=== PATIENT | male | born 2000 | race Caucasian/White ===

== ENCOUNTER 2020-09-04 09:34 | Emergency (ER) | payer OTHER ==
[~2020-09-04] VITALS: Ht 170.2 cm; Wt 74.5 kg
--- NOTE | 2020-09-04 10:52 | REP ---
INDICATION: TRAUMA. COMPARISON: None. TECHNIQUE: Four views FINDINGS: 9 ft, subtalar joint, tarsal bones and their articulations, metatarsals and phalanges are without fracture or focal bone lesion no erosions or 5 joint abnormalities are identified. 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 No avulsion or abnormal soft tissue calcification. No heel spurs. IMPRESSION: Negative right foot series for fracture or other acute bony finding. <Electronically signed by Leander Wood > 09/04/20 1045
[2020-09-04 11:20] VITALS: BP 137/76
== END 2020-09-04 11:25 | disposition home or self-care (01) ==
LOC: M ED 09:34
DX: S90.31XA Contusion of right foot, initial encounter (principal); W20.8XXA Other cause of strike by thrown, projected or falling object, initial encounter; Y99.1 Military activity; Y92.9 Unspecified place or not applicable; Y93.9 Activity, unspecified; F17.200 Nicotine dependence, unspecified, uncomplicated; Z88.0 Allergy status to penicillin